=== PATIENT | male | born 1965 | race Caucasian/White ===

== ENCOUNTER 2017-02-15 12:05 | Emergency (ER) | payer SELFPAY ==
[2017-02-15 12:06] VITALS: BP 127/85; PULSE 70; RESP 13; TEMP 98.4; O2SAT 96
--- NOTE | 2017-02-15 12:18 | PD ---
Physical Exam Time Seen by Provider: 12:17 Narrative Right handed male presents for evaluation of R hand injury. Pt had hand shut in a door, sustained laceration to dorsum of right hand.. Up to date on tetanus. No limitations in range of motion. Bleeding controlled Data Data Last Documented VS Vital Signs Date Time Temp Pulse Resp B/P (MAP) Pulse Ox O2 Delivery O2 Flow Rate FiO2 02/15/17 14:03 02/15/17 12:06 98.4 70 13 96 Orders Orders Lidocaine 1% Inj (50 Ml) (Xylocaine 1% I (02/15/17 12:30) [facility] Medical Record Reviewed: Yes Supervised Visit with JOSE: No Condition: Stable China Castañeda Feb 15, 2017 12:18
[2017-02-15] MEDS ORDERED: LIDOCAINE HCL 1% 50 ML VIAL INFIL ONE (12:30)
--- NOTE | 2017-02-15 12:31 | PD ---
HPI Chief Complaint: Laceration/Skin Injury Time Seen by Provider: 12:22 Travel History International Travel<30 days: No Contact w/Intl Traveler<30days: No Traveled to known affect area: No History of Present Illness HPI 51-year-old male here for evaluation of right hand laceration. Prior to arrival the patient had his hand on his car door when the wind blew the door shut. He sustained laceration to the dorsum of the right hand. He has an aching pain, constant, worse with movement or palpation of the wound. Denies any numbness or tingling or range of motion with rotation. Last tetanus vaccination 3 years ago. Right hand dominant. No other complaints. [facility] Social History Alcohol Use: Yes Tobacco Use: No Allergies-Medications (Allergen,Severity, Reaction): Coded Allergies: No Known Allergies (Unverified , 02/15/17) Review of Systems Musculoskeletal: No: Limited ROM, Pain Skin: Positive Other (positive for laceration, pain, bleeding) Physical Exam Narrative GENERAL: Well-nourished male in no acute distress SKIN: Warm and dry. There is a laceration of the dorsum of the right, 3 cm in length, extending even longer as an abrasion CARDIOVASCULAR: Regular rate and rhythm. No murmur appreciated. RESPIRATORY: No accessory muscle use. Clear to auscultation. Breath sounds equal bilaterally. MUSCULOSKELETAL: Skin as noted above with no bony deformities. Full flexion and extension against resistance to the right hand and 5 fingers. The wound was thoroughly explored with no extensor tendon damage. Capillary refill less than 2 seconds all digits right hand. NEUROLOGICAL: Awake and alert. No obvious cranial nerve deficits. Motor grossly within normal limits. Normal speech. Data Data Last Documented VS Vital Signs Date Time Temp Pulse Resp B/P (MAP) Pulse Ox O2 Delivery O2 Flow Rate FiO2 02/15/17 12:06 98.4 70 13 127/85 (99) 96 Orders Orders Lidocaine 1% Inj (50 Ml) (Xylocaine 1% I (02/15/17 12:30) Hand, Complete ([id number]) (02/15/17 ) [facility] Medical Decision Making Medical Screen Exam Complete: Yes Emergency Medical Condition: Yes Medical Record Reviewed: Yes Differential Diagnosis Cutaneous laceration, extensor tendon laceration, open fracture Narrative Course X-ray imaging will be obtained. The laceration will be repaired with sutures, he verbally consents. The patient declined x-ray. He understands the risks of declining the x-ray including fracture, open fracture. He is stable for discharge. Procedures Procedure Narrative LACERATION LOCATION: Dorsal right hand LENGTH: 3 cm NUMBER OF STITCHES/ROSA: 9 REPAIR: The area of the laceration was prepped with Betadine and sterilely draped. The laceration was infiltrated with 1% lidocaine. The wound was copiously irrigated and explored without evidence of foreign body, tendon injury or neurovascular injury. The wound was closed using 5-0 PROLENE simple interrupted. This was a single layer repair. A sterile dressing was applied. The patient was advised to keep the dressing clean and dry. Patient tolerated the procedure well. Diagnosis Primary Impression: Laceration of right hand Qualified Codes: S61.411A - Laceration without foreign body of right hand, initial encounter Additional Instructions: Wash the wound daily with soap and water to apply antibiotic cream and clean bandages. Return in approximately 10-14 days for suture removal. Med/Other Pt SpecificInfo: Wound Care Disposition: 01 DISCHARGE HOME Condition: Stable Carlin Weathers Feb 15, 2017 12:31
== END 2017-02-15 14:03 | disposition home or self-care (01) ==
LOC: NEPK 12:05
DX: S61.411A Laceration without foreign body of right hand, initial encounter (principal); W23.0XXA Caught, crushed, jammed, or pinched between moving objects, initial encounter; Y92.810 Car as the place of occurrence of the external cause
CPT/HCPCS: 12002